=== PATIENT | male | born 1985 | race African-American/Black ===

== ENCOUNTER 2020-03-31 09:36 | Emergency (ER) | payer OTHER ==
[~2020-03-31] VITALS: Ht 170.2 cm; Wt 86.2 kg
[~2020-03-31 09:36] MED LIST: PHENERGAN 25 MG25 M1 PO; ULTRAM 50MG TAB50 MG PO
[2020-03-31 10:11] LABS: ABSOLUTE NEUTROPHILS 3.2 thou/uL (1.4-8.2); BASOPHILS 1.4 % (0.0-2.0); EOSINOPHILS 1.5 % (0.0-3.0); HEMATOCRIT 46.2 % (42.0-52.0); HEMOGLOBIN 15.1 gm/dL (14.0-18.0); MCH 32.1 pg (26.0-34.0); MCHC 32.8 g/dL (28.0-37.0); MCV 97.8 fL (80.0-100.0); MONOCYTES 10.4 % (1.0-8.0); PLATELET COUNT 172 thou/uL (150-400); POLYS 52.7 % (36.0-66.0); RBC 4.72 mil/uL (4.50-6.00); RDW 13.8 % (10.5-14.5); WBC 6.1 thou/uL (4.0-11.0)
[2020-03-31 10:19] LABS: CALCIUM 9.4 mg/dL (8.5-10.1); CREATININE 0.9 mg/dL (0.7-1.3); POTASSIUM 3.4 mmol/L (3.5-5.1)
[2020-03-31 10:30] LABS: ALBUMIN 4.1 g/dL (3.4-5.0); MAGNESIUM 2.1 mg/dL (1.8-2.4); TOTAL BILIRUBIN 0.8 mg/dL (0.2-1.0); TOTAL PROTEIN 7.2 g/dL (6.4-8.2)
[2020-03-31 11:30] VITALS: BP 116/83
--- NOTE | 2020-04-02 16:03 | EKG ---
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: [facility] : 1985 Requested By: Rk Hong Order Number: [id number] MD: Travis Brock Measurements Intervals [place] Rate: 79 P: 79 ME: 167 QRS: 78 QRSD: 87 T: 60 QT: 413 QTc: 474 Interpretive Statements Sinus rhythm Probable left atrial enlargement Probable left ventricular hypertrophy Compared to ECG 12/13/2017 11:41:05 ST (T wave) deviation no longer present Electronically Signed On 04-02-2020 16:02:58 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
== END 2020-03-31 11:31 | disposition home or self-care (01) ==
LOC: ER 09:36
PROVIDERS: Emergency Medicine
DX: E16.2 Hypoglycemia, unspecified (principal); R42 Dizziness and giddiness; R41.82 Altered mental status, unspecified